=== PATIENT | male | born 1945 | race Caucasian/White ===

== ENCOUNTER 2020-12-02 09:38 | Emergency (ER) | payer MEDICARE, OTHER ==
[~2020-12-02] VITALS: Ht 167.6 cm; Wt 79.9 kg
[2020-12-02 10:12] VITALS: BP 192/84
[2020-12-02 11:17] LABS: BASOPHILS # (AUTO) 0.1 X10'3 (0-0.2); BASOPHILS % (AUTO) 0.4 % (0-1); EOSINOPHILS % (AUTO) 0.2 % (0-6); HEMATOCRIT 48.9 % (42.0-52.0); HEMOGLOBIN 16.6 g/dl (14.0-17.9); LYMPHOCYTES # (AUTO) 1.8 X10'3 (1.1-4.8); LYMPHOCYTES % (AUTO) 10.8 % (21-51); MEAN CORPUSCULAR HEMOGLOBIN 31.3 PG (27.0-31.0); MEAN CORPUSCULAR HGB CONC 33.8 g/dL (33.0-36.5); MEAN CORPUSCULAR VOLUME 92.6 FL (78-98); MEAN PLATELET VOLUME 8.7 FL (7.4-10.4); MONOCYTES # (AUTO) 0.7 X10'3 (0-0.9); NEUTROPHILS % (AUTO) 84.6 % (42-75); PLATELET COUNT 248 X10'3 (140-440); RED BLOOD COUNT 5.29 X10'6 (4.70-6.10); RED CELL DISTRIBUTION WIDTH 13.5 % (11.5-14.5); WHITE BLOOD COUNT 16.5 X10'3 (4.5-11.0)
[2020-12-02 11:36] LABS: ALANINE AMINOTRANSFERASE 33 U/L (12-78); ALBUMIN 4.1 G/DL (3.4-5.0); ALBUMIN/GLOBULIN RATIO 1.1 (1.1-1.5); ALKALINE PHOSPHATASE 78 IU/L (46-116); ANION GAP 15 (8-16); ASPARTATE AMINO TRANSFERASE 20 U/L (10-37); BILIRUBIN,TOTAL 0.9 MG/DL (0.1-1.0); BLOOD UREA NITROGEN 25 MG/DL (7-18); BUN/CREATININE RATIO 13.3 (5.4-32.0); CALCIUM 9.5 MG/DL (8.5-10.1); CHLORIDE 109 MMOL/L (99-107); CREATININE 1.88 MG/DL (0.60-1.10); GLUCOSE 169 MG/DL (70-104); LIPASE 79 U/L (73-393); POTASSIUM 4.4 MMOL/L (3.5-5.1); SODIUM 147 MMOL/L (135-145); TOTAL CARBON DIOXIDE 22.9 MMOL/L (24-32); eGFR 35 ML/MIN
[2020-12-02] MEDS ORDERED: morphine 4 MG/ML inj SYRINge IV ONE (12:05)
[2020-12-02] MEDS ORDERED: normal saline 1000ml 1,000 ML IV ONE ×2 (12:05)
[2020-12-02] MEDS ORDERED: ondansetron/PF 4mg/2ml inj IV ONE (12:05)
[2020-12-02 13:46] LABS: CLARITY,URINE SLIGHTLY CLOUDY (Clear); COLOR,URINE YELLOW (Yellow); GLUCOSE, URINE NEGATIVE (Neg); KETONES,URINE NEGATIVE (Neg); LEUKOCYTE ESTERASE ,URINE NEGATIVE (Neg); NITRITES, URINE NEGATIVE (Neg); OCCULT BLOOD,URINE LARGE (Neg); PH,URINE 5.5 (4.8-8.0); PROTEIN,URINE 30 mg/dl (Neg); UROBILINOGEN,URINE 0.2 E.U/dL (0.2-1.0)
[2020-12-02 13:55] LABS: UA COLLECTION TYPE CLN CATCH MIDSTREAM
[2020-12-02 13:56] LABS: HYALINE CASTS 0-3 /LPF (NEGATIVE); MUCUS STRANDS MODERATE /LPF (Neg); SQUAMOUS EPITHELIAL CELL,UR FEW /LPF (FEW)
[2020-12-02 13:57] LABS: BACTERIA,URINE 1+ /HPF (Neg); CAL OXALATE CRYSTALS FEW /HPF (NEGATIVE); RBC,URINE 20-50 /HPF (0-2); WBC,URINE 0-4 /HPF (0-4)
[2020-12-02] MEDS ORDERED: FLO0.4C PO (14:52)
[2020-12-02] MEDS ORDERED: ONDA4TAB6 PO (14:52)
[2020-12-02] MEDS ORDERED: CEPH250T PO (14:52)
[2020-12-02] MEDS ORDERED: HYDR-3965 PO (14:52)
== END 2020-12-02 15:16 | disposition home or self-care (01) ==
LOC: ER 09:39
DX: N21.0 Calculus in bladder (principal); R10.2 Pelvic and perineal pain; R10.32 Left lower quadrant pain; R11.2 Nausea with vomiting, unspecified; M19.90 Unspecified osteoarthritis, unspecified site; Z98.890 Other specified postprocedural states; Z79.2 Long term (current) use of antibiotics; Z79.899 Other long term (current) drug therapy
CPT/HCPCS: 36415; 74176; 80053; 81001; 83690; 85025; 96361; 96374; 96375; 99284; J2270; J2405; J7030

== ENCOUNTER 2020-12-08 10:36 | Emergency (ER) | payer MEDICARE, OTHER ==
[~2020-12-08] VITALS: Ht 167.6 cm; Wt 81.0 kg
[~2020-12-08 10:36] MED LIST: CEPH250T PO; FLO0.4C PO; HYDR-3965 PO; ONDA4TAB6 PO
[2020-12-08 12:13] LABS: BASOPHILS % (AUTO) 0.2 % (0-1); EOSINOPHILS % (AUTO) 0.1 % (0-6); HEMATOCRIT 47.6 % (42.0-52.0); HEMOGLOBIN 15.9 g/dl (14.0-17.9); LYMPHOCYTES # (AUTO) 1.4 X10'3 (1.1-4.8); LYMPHOCYTES % (AUTO) 8.8 % (21-51); MEAN CORPUSCULAR HEMOGLOBIN 31.4 PG (27.0-31.0); MEAN CORPUSCULAR HGB CONC 33.5 g/dL (33.0-36.5); MEAN CORPUSCULAR VOLUME 93.7 FL (78-98); MEAN PLATELET VOLUME 8.9 FL (7.4-10.4); MONOCYTES # (AUTO) 0.9 X10'3 (0-0.9); MONOCYTES % (AUTO) 5.5 % (2-12); NEUTROPHILS # (AUTO) 13.3 X10'3 (1.8-7.7); NEUTROPHILS % (AUTO) 85.4 % (42-75); PLATELET COUNT 256 X10'3 (140-440); RED BLOOD COUNT 5.08 X10'6 (4.70-6.10); RED CELL DISTRIBUTION WIDTH 13.4 % (11.5-14.5); WHITE BLOOD COUNT 15.6 X10'3 (4.5-11.0)
[2020-12-08 12:22] LABS: CLARITY,URINE CLOUDY (Clear); COLOR,URINE YELLOW (Yellow); GLUCOSE, URINE NEGATIVE (Neg); KETONES,URINE NEGATIVE (Neg); LEUKOCYTE ESTERASE ,URINE NEGATIVE (Neg); NITRITES, URINE NEGATIVE (Neg); OCCULT BLOOD,URINE MODERATE (Neg); PROTEIN,URINE 30 mg/dl (Neg); UA COLLECTION TYPE CLN CATCH MIDSTREAM; UROBILINOGEN,URINE 0.2 E.U/dL (0.2-1.0)
[2020-12-08 12:28] LABS: HYALINE CASTS 0-3 /LPF (NEGATIVE); MUCUS STRANDS FEW /LPF (Neg); SQUAMOUS EPITHELIAL CELL,UR MODERATE /LPF (FEW)
[2020-12-08 12:29] LABS: ALANINE AMINOTRANSFERASE 37 U/L (12-78); ALBUMIN 3.9 G/DL (3.4-5.0); ALBUMIN/GLOBULIN RATIO 0.9 (1.1-1.5); ALKALINE PHOSPHATASE 73 IU/L (46-116); ANION GAP 13 (8-16); ASPARTATE AMINO TRANSFERASE 23 U/L (10-37); BLOOD UREA NITROGEN 27 MG/DL (7-18); BUN/CREATININE RATIO 15.7 (5.4-32.0); CALCIUM 9.3 MG/DL (8.5-10.1); CHLORIDE 108 MMOL/L (99-107); CREATININE 1.72 MG/DL (0.60-1.10); GLUCOSE 132 MG/DL (70-104); LIPASE 60 U/L (73-393); POTASSIUM 4.1 MMOL/L (3.5-5.1); SODIUM 143 MMOL/L (135-145); TOTAL CARBON DIOXIDE 22.4 MMOL/L (24-32); TOTAL PROTEIN 8.2 G/DL (6.4-8.2); eGFR 39 ML/MIN
[2020-12-08 12:29] LABS: BACTERIA,URINE FEW /HPF (Neg); CAL OXALATE CRYSTALS 4+ /HPF (NEGATIVE); RBC,URINE 0-2 /HPF (0-2); WBC,URINE 0-4 /HPF (0-4)
[2020-12-08 12:41] LABS: BILIRUBIN,TOTAL 1.1 MG/DL (0.1-1.0)
[2020-12-08] MEDS ORDERED: normal saline 1000ML IV soln IVB ONE (16:00)
[2020-12-08] MEDS ORDERED: morphine 4 MG/ML inj SYRINge IV PRN (16:00)
[2020-12-08] MEDS ORDERED: ondansetron/PF 4mg/2ml inj IV ONE (16:00)
[2020-12-08] MEDS ORDERED: CefTRIAXone 2gm/D5W 50ml BAG 50 ML IV ONE (17:00)
[2020-12-08] MEDS ORDERED: FLO0.4C PO (18:22)
[2020-12-08] MEDS ORDERED: ONDA-103 PO (18:22)
[2020-12-08] MEDS ORDERED: SIMV-45 PO (18:22)
[2020-12-08] MEDS ORDERED: CEPH250C2 PO (18:22)
[2020-12-08] MEDS ORDERED: METO200T49 PO (18:22)
[2020-12-08] MEDS ORDERED: HYDROcodone/acetaminophen 5mg/325mg tablet PO PRN (18:25)
[2020-12-08] MEDS ORDERED: morphine 2 MG/ML inj. syringe IV PRN ×2 (18:25)
[2020-12-08] MEDS ORDERED: mag hydrox/Alum hydrox/simeth 30ml oral suspension PO PRN (18:25)
[2020-12-08] MEDS ORDERED: magnesium hydroxide 30ml (MOM) UD suspension PO PRN (18:25)
[2020-12-08] MEDS ORDERED: HYDROcodone/acetaminophen 10/325mg tab PO PRN (18:25)
[2020-12-08] MEDS ORDERED: ondansetron/PF 4mg/2ml inj IV PRN (18:25)
[2020-12-08] MEDS ORDERED: acetaminophen 325mg tablet PO PRN ×2 (18:25)
[2020-12-08] MEDS: normal saline 1000ml 1,000 ML IV SCH ×2 (19:27→21:23)
[2020-12-08] MEDS ORDERED: tamsulosin 0.4mg capsule PO SCH (21:00)
[2020-12-08] MEDS: docusate sod 100mg capsule PO SCH (21:22)
[2020-12-09] MEDS ORDERED: SIMV40TA PO (03:58)
[2020-12-09] MEDS ORDERED: HYDR-3965 PO (03:58)
[2020-12-09] MEDS ORDERED: METO1TAB12 PO (03:58)
[2020-12-09 05:29] LABS: BASOPHILS % (AUTO) 0.5 % (0-1); EOSINOPHILS # (AUTO) 0.2 X10'3 (0-0.9); EOSINOPHILS % (AUTO) 2.1 % (0-6); HEMATOCRIT 40.4 % (42.0-52.0); HEMOGLOBIN 13.7 g/dl (14.0-17.9); LYMPHOCYTES # (AUTO) 2.8 X10'3 (1.1-4.8); LYMPHOCYTES % (AUTO) 32.3 % (21-51); MEAN CORPUSCULAR HEMOGLOBIN 31.8 PG (27.0-31.0); MEAN CORPUSCULAR VOLUME 93.4 FL (78-98); MEAN PLATELET VOLUME 8.6 FL (7.4-10.4); MONOCYTES # (AUTO) 0.7 X10'3 (0-0.9); MONOCYTES % (AUTO) 8.2 % (2-12); NEUTROPHILS # (AUTO) 4.9 X10'3 (1.8-7.7); NEUTROPHILS % (AUTO) 56.9 % (42-75); PLATELET COUNT 182 X10'3 (140-440); RED BLOOD COUNT 4.32 X10'6 (4.70-6.10); RED CELL DISTRIBUTION WIDTH 13.4 % (11.5-14.5); WHITE BLOOD COUNT 8.6 X10'3 (4.5-11.0)
[2020-12-09 05:36] LABS: ANION GAP 5 (8-16); BLOOD UREA NITROGEN 26 MG/DL (7-18); BUN/CREATININE RATIO 16.9 (5.4-32.0); CALCIUM 8.2 MG/DL (8.5-10.1); CHLORIDE 107 MMOL/L (99-107); CREATININE 1.54 MG/DL (0.60-1.10); GLUCOSE 98 MG/DL (70-104); POTASSIUM 3.6 MMOL/L (3.5-5.1); SODIUM 138 MMOL/L (135-145); TOTAL CARBON DIOXIDE 25.9 MMOL/L (24-32); eGFR 44 ML/MIN
[2020-12-09] MEDS ORDERED: metoprolol succinate 25mg (24-HOUR) SR. Tablet PO SCH (08:00)
[2020-12-09] MEDS ORDERED: tamsulosin 0.4mg capsule PO SCH (08:00)
[2020-12-09] MEDS: docusate sod 100mg capsule PO SCH (08:53)
--- NOTE | 2020-12-09 08:58 | NUR ---
Held beta salvatore d/t bradycardia HR 48-54
--- NOTE | 2020-12-09 09:11 | NUR ---
PT WALKED TO RESTROOM AND VOIDED BLADDER. BACK ON BED EATING BREAKFAST.
[2020-12-09 10:24] VITALS: BP 129/71
--- NOTE | 2020-12-09 14:29 | NUR ---
Gave pt. discharge instructions and discharged teaching, pt. verbalized understanding of instructions and teaching, paperwork given to pt., pt. will follow up with urologist.
[2020-12-09] MEDS ORDERED: atorvastatin 20mg tablet PO SCH (21:00)
== END 2020-12-09 14:29 | disposition home or self-care (01) ==
LOC: ER 10:37 → UNDOADMIN 18:26 → ED HOLD 18:26 → UNDODISIN 12-09 14:29 → ER 12-09 14:29
DX: N13.2 Hydronephrosis with renal and ureteral calculous obstruction (principal); N18.30 Chronic kidney disease, stage 3 unspecified; I12.9 Hypertensive chronic kidney disease with stage 1 through stage 4 chronic kidney disease, or unspecified chronic kidney disease; N17.9 Acute kidney failure, unspecified; N18.9 Chronic kidney disease, unspecified; R53.1 Weakness
CPT/HCPCS: 36415; 74018; 76770; 80048; 80053; 81001; 83690; 83880; 84145; 85025; 96361; 96365; 96375; 99285; J0696; J2270; J2405; J7030; G0378